=== PATIENT | male | born 1970 | race American Indian/Alaskan Native ===

== ENCOUNTER 2016-08-23 12:32 | Outpatient (CLI) | payer BC ==
--- NOTE | 2016-08-23 13:11 | XRay Report ---
Single view abdomen: History: Left nephrolithiasis. Findings: Stable left ureteral stent. No calculi along the stent or in the left kidney or in the region of the bladder. No calculi on the right side. Stool in colon. Impression: No radiopaque calculi identified.
== END 2016-08-23 12:33 | disposition home or self-care (01) ==
LOC: XRAY 12:32
PROVIDERS: ATTEND Family Medicine
DX: Z00.00 Encounter for general adult medical examination without abnormal findings (principal); Z87.442 Personal history of urinary calculi
CPT/HCPCS: 74000

== ENCOUNTER 2016-09-09 07:45 | Outpatient (CLI) | payer BC ==
--- NOTE | 2016-09-09 09:21 | Cat Scan Report ---
CT ABDOMEN AND PELVIS WITHOUT CONTRAST INDICATION: Left nephrolithiasis. COMPARISON: 08/23/2016 abdomen radiograph. FINDINGS: Noncontrast abdomen and pelvis CT performed. LUNG BASES: Slight cardiomegaly. Minimal coronary calcifications. No effusions. Nonspecific distal esophageal wall prominence/thickening, not excluded for gastroesophageal reflux and/or hiatal hernia, amongst others. ABDOMEN: Please note that sensitivity to detect small visceral lesions is limited due to the absence of intravenous or oral contrast. Stable left double-J ureteral stent with its proximal end coiled in mildly prominent proximal ureter. No hydronephrosis. Approximately 1 cm left lower renal pole calculus. No other radiopaque calculi. Grossly unremarkable unenhanced liver, spleen, gallbladder, pancreas, adrenals, aorta and IVC. Nonopacified GI tract evaluation limited, though grossly nonobstructive. Normal appendix. Mild to moderate colonic stool/possible constipation. PELVIS: Slightly prominent prostate that may be correlated for clinically and with PSA. Mild rectosigmoid stool. Grossly unremarkable non-opacified urinary bladder and seminal vesicles. No free fluid or significant adenopathy. Slight lumbar degenerative spurring, age-appropriate. Right SI joint degenerative bridging also seen. Slight nonspecific pelvic bony trabecular prominence/possible osteopenia. CONCLUSION: 1. Nonobstructing 1 cm left lower renal calculus. Left double-J ureteral stent also again seen, as described. 2. Few other findings, including mild cardiomegaly, amongst others, as above. Please correlate. Thank you for the opportunity to participate in this patient's care.
== END 2016-09-09 07:46 | disposition home or self-care (01) ==
LOC: CT 07:45
PROVIDERS: ATTEND Urology
DX: N20.0 Calculus of kidney (principal); I51.7 Cardiomegaly; I25.10 Atherosclerotic heart disease of native coronary artery without angina pectoris; M53.86 Other specified dorsopathies, lumbar region
CPT/HCPCS: 74176